=== PATIENT | female | born 1995 ===

== ENCOUNTER 2021-01-21 16:04 | Emergency (ER) | payer OTHER ==
[~2021-01-21] VITALS: Ht 154.9 cm; Wt 64.4 kg
[~2021-01-21 16:04] MED LIST: CEFTIN250 MG PO; IMODIUM A-D2 MG PO; MACROBID 100 M100 MG PO; OBSTETRIX DHA1 EACH; ZYNCOF 20-400120 ML PO
== END 2021-01-21 20:07 | disposition home or self-care (01) ==
LOC: ER 16:04
DX: M54.2 Cervicalgia (principal); M54.89 Other dorsalgia

== ENCOUNTER → 2021-02-18 | Emergency (ER) | payer OTHER ==
[~2021-02-18] VITALS: Ht 154.9 cm; Wt 66.7 kg
[~2021-02-18] MED LIST changes: +FLAGYL500MG PO; +MONISTAT 315 GM VAG
== END | disposition home or self-care (01) ==
LOC: ER 21:43
DX: N93.8 Other specified abnormal uterine and vaginal bleeding (principal)